=== PATIENT | female | born 1965 | race American Indian/Alaskan Native ===

== ENCOUNTER 2018-09-17 06:44 | Emergency (ER) | payer OTHER ==
--- NOTE | 2018-09-17 07:56 | ED PDOC ---
HPI: Trauma/Fall - HPI Time Seen by Provider: 09/17/18 07:01 Chief Complaint (Nursing): Trauma History Per: Patient History/Exam Limitations: no limitations Additional Complaint(s): 53 y/o F presents to ED complaining of headache after falling on stairs at 06:20. Pt report she missed a step on stairs and fell backwards and on her R side. Right posterior head hit the wall. No LOC, no vomiting but pt had some gags like she was going to vomit. A bump on her head was found which is very painful as per patient. No seizure activity, no loss of bladder control and no bitten tongue. Pt denies fever, dizziness, neck pain, neck stiffness, no SOB. PMD: None. pt has not seen a doctor in years. NKDA Meds: None PMHx: denied PSHx: denied FHx: HTN and DM2 in mother and sister. Shx: Denies tobacco. Denies alcohol. Denies rec drugs use. Past Medical History Vital Signs: Last Vital Signs Temp 97.8 F 09/17/18 06:47 Pulse 88 09/17/18 06:47 Resp 18 09/17/18 06:47 BP 180/87 H 09/17/18 06:47 Pulse Ox 98 09/17/18 06:47 Primary Care Provider: FAMILY PROVIDER,NO - Family History Family History: States: Diabetes - Living Arrangements Living Arrangements: With Family - Social History Current smoker - smoking cessation education provided: No Alcohol: None Drugs: Denies - Home Medications Home Medications: Ambulatory Orders Medication Instructions Recorded Acetaminophen [Tylenol 325mg tab] 2 tab PO Q4H PRN #20 tab 09/17/18 - Allergies Allergies/Adverse Reactions: Allergies Allergy/AdvReac Type Severity Reaction Status Date / Time No Known Allergies Allergy Verified 09/17/18 06:47 Review of Systems Constitutional: Negative for: Fever, Chills, Sweats Eyes: Negative for: Pain, Vision Change ENT: Negative for: Ear Pain, Nose Pain Cardiovascular: Negative for: Chest Pain, Palpitations Respiratory: Negative for: Cough, Shortness of Breath, Hemoptysis Gastrointestinal: Negative for: Nausea, Vomiting, Abdominal Pain, Diarrhea Genitourinary Female: Negative for: Dysuria, Frequency, Hematuria Musculoskeletal: Negative for: Neck Pain, Shoulder Pain Neurological: Positive for: Headache. Negative for: Weakness, Numbness, Incoordination, Change in Speech, Confusion, Seizures, Altered Mental Status, Dizziness Physical Exam - Physical Exam Appears: Positive for: No Acute Distress Head Exam: Positive for: NORMOCEPHALIC. Negative for: ATRAUMATIC (~7cm very tender hematoma is noticed, normal hair implatation and NO open wound on inspection. ) Skin: Positive for: Normal Color, Warm Eye Exam: Positive for: EOMI, PERRL. Negative for: Periorbital swelling, Periorbital tenderness, Conjunctival injection ENT: Negative for: Nasal Congestion, Pharyngeal Erythema Cardiovascular/Chest: Positive for: Regular Rate, Rhythm Respiratory: Positive for: Normal Breath Sounds Gastrointestinal/Abdominal: Positive for: Normal Exam. Negative for: Soft, Tenderness, Organomegaly, Mass Back: Positive for: Normal Inspection. Negative for: L CVA Tenderness, R CVA Tenderness Extremity: Positive for: Normal ROM, Capillary Refill (<2 secs), Other (normal strength 5/5 in all extremities. ). Negative for: Tenderness, Pedal Edema, Calf Tenderness Neurological/Psych: Positive for: Awake, Alert, Normal Tone, Interactive/Playful, Oriented, Mood/Affect (normal), copy writer II-XII (normal), Other (normal [id number] test. ). Negative for: Lethargic, Facial Droop - ECG O2 Sat by Pulse Oximetry: 98 Medical Decision Making Medical Decision Making: At 07:40 --Since considerable size hematoma and gagging. head CT ordered --PO Tylenol ordered for pain --BP high. Will monitor BP. At 09:30 --Head CT showed NO intracranial hemorrhage, R parietal hematoma, NO fracture. --Pain improved with PO Tylenol. --Pt stable, tolerating PO, will be discharged. --BP was elevated at presentation, repeated BP 140/80. Pt was notified and counseled on the complications of HTN. Pt instructed on follow this up as outpatient. Disposition - Clinical Impression Clinical Impression: Head injury, Hematoma - Disposition Referrals: [facility] [Outside] Disposition: Routine/Home Disposition Time: 09:50 Condition: STABLE Prescriptions: Acetaminophen [Tylenol 325mg tab] 2 tab PO Q4H PRN #20 tab PRN Reason: Fever >100.4 F Instructions: Closed Head Injury Forms: [employer] ([place]), [facility] ED School/Work Excuse - Pt Status Changed To: Hospital Disposition Of: Inpatient - Admit Certification Admit to Inpatient:: After my assessment, the patient will require hospitalization for at least two midnights. This is because of the severity of symptoms shown, intensity of services needed, and/or the medical risk in this patient being treated as an outpatient. - POA Present On Arrival: None
--- NOTE | 2018-09-17 08:43 | CT ---
Date of service: 09/17/2018 PROCEDURE: CT HEAD WITHOUT CONTRAST. HISTORY: head trauma COMPARISON: None available. TECHNIQUE: Axial computed tomography images were obtained through the head/brain without intravenous contrast. Radiation dose: Total exam DLP = 828.45 mGy-cm. This CT exam was performed using one or more of the following dose reduction techniques: Automated exposure control, adjustment of the mA and/or kV according to patient size, and/or use of iterative reconstruction technique. FINDINGS: HEMORRHAGE: No intracranial hemorrhage. BRAIN: Normal santiago-white matter differentiation and density are appreciated throughout the cerebrum and cerebellum with the brainstem appearing unremarkable as well. There is no mass effect. There is no suspicious extra-axial fluid collection and the midline brain anatomy appears diffusely unremarkable. VENTRICLES: Unremarkable. No hydrocephalus. CALVARIUM: No destructive bony lesion or displaced fracture identified including through the skullbase. However, there is a small right parietal occipital scalp hematoma. PARANASAL SINUSES: Unremarkable as visualized. No significant inflammatory changes. MASTOID AIR CELLS: Unremarkable as visualized. No inflammatory changes. OTHER FINDINGS: None. IMPRESSION: No acute intracranial findings. Brain parenchyma appears unremarkable throughout. Note is made of a small right parietal occipital scalp hematoma. No fracture of the calvarium or skull base appreciable.
[2018-09-17 10:04] VITALS: RESP 17
[2018-09-17 10:05] VITALS: BP 147/79; PULSE 78; TEMP 98; O2SAT 100
== END 2018-09-17 10:04 | disposition home or self-care (01) ==
LOC: H.ER 06:44
DX: S00.03XA Contusion of scalp, initial encounter (principal); W10.9XXA Fall (on) (from) unspecified stairs and steps, initial encounter; Y92.89 Other specified places as the place of occurrence of the external cause